=== PATIENT | female | born 1930 | race Caucasian/White ===

== ENCOUNTER 2016-11-03 14:46 | Inpatient (IN) | payer MEDICARE ==
[~2016-11-03] VITALS: Ht 167.6 cm; Wt 78.5 kg
[~2016-11-03 14:46] MED LIST: CALTRATE; CHLORTHALIDONE 12.5 MG; DIGO125T PO; ESOM40CA PO; FISH OIL; LISI-170 PO; LUMIGAN; PROP150T2 PO; RANI150T8 PO; VITAMIN C; VITAMIN D; WARFARIN 2.5 MG
[2016-11-03] MEDS ORDERED: SODIUM CHLORIDE 0.9% 1,000 ML IV ONE (14:56)
[2016-11-03] MEDS ORDERED: SODIUM CHLORIDE 0.9% 1,000ML IVBOLUS ONE (15:00)
[2016-11-03 15:28] LABS: HEMATOCRIT 40.9 % (34.6-47.8); HEMOGLOBIN 13.6 g/dL (11.7-16.4); WHITE BLOOD COUNT 8.9 x10^3/uL (3.4-10)
[2016-11-03 15:38] LABS: BLOOD UREA NITROGEN 20 mg/dL (7-18)
[2016-11-03] MEDS ORDERED: CHOL10002 PO (16:33)
[2016-11-03] MEDS ORDERED: CALC1TAB PO (16:33)
[2016-11-03] MEDS ORDERED: OMEG100023 PO (16:33)
[2016-11-03] MEDS ORDERED: BIMA2.5D EACHEYE (16:33)
[2016-11-03] MEDS ORDERED: ASCO10004 PO (16:34)
[2016-11-03] MEDS ORDERED: APIX2.5T PO (16:34)
[2016-11-03] MEDS ORDERED: DOXY100C2 PO (16:35)
[2016-11-03] MEDS ORDERED: AMOX-367 PO (16:35)
[2016-11-03 16:45] LABS: IS PT STATUS REG ER OR PRE ER? YES
[2016-11-03] MEDS ORDERED: SODIUM CHLORIDE FLUSH 10ML SYR IVF PRN (17:00)
[2016-11-03] MEDS ORDERED: AZITHROMYCIN 500 MG in SODIUM CHLORIDE 0.9% 250 ML IVPB ONE (17:00)
[2016-11-03] MEDS ORDERED: CEFTRIAXONE PMX 1GM/50ML 50 ML IVPB ONE (17:00)
[2016-11-03] MEDS ORDERED: CEFTRIAXONE PMX 1GM/50ML 50 ML ONE (17:21)
[2016-11-03] MEDS: LACTOBACILLUS CHEW TABLET PO SCH ×2 (18:00→22:09)
[2016-11-03] MEDS: CEFTRIAXONE PMX 1GM/50ML 50 ML IV SCH (18:00)
[2016-11-03] MEDS ORDERED: PROMETHAZINE 25 MG/ML, 1ML IM PRN (18:00)
[2016-11-03] MEDS ORDERED: AZITHROMYCIN 500 MG in SODIUM CHLORIDE 0.9% 250 ML IV SCH (18:00)
[2016-11-03] MEDS ORDERED: DOCUSATE 100 MG CAPSULE PO PRN (18:00)
[2016-11-03] MEDS ORDERED: ENOXAPARIN 40 MG/0.4 ML SQ SCH (18:00)
[2016-11-03] MEDS ORDERED: BISACODYL 10 MG SUPP PR PRN (18:00)
[2016-11-03] MEDS ORDERED: POLYETHYLENE GLYCOL 17 GM PACKET PO PRN (18:00)
[2016-11-03] MEDS: SODIUM CHLORIDE 0.9% 1,000 ML IV SCH (19:51)
[2016-11-03 20:25] VITALS: BP 169/99
[2016-11-03 20:50] VITALS: BP 145/67
[2016-11-03] MEDS: PROPAFENONE 150 MG TABLET PO SCH (22:09)
[2016-11-03] MEDS: APIXABAN 2.5 MG TABLET PO SCH (22:09)
[2016-11-03] MEDS: DOXYCYCLINE 100 MG in DEXTROSE 5% 250 ML IV SCH (22:23)
[2016-11-03 22:41] LABS: PATH.CAST-FLAG NOT PRESENT; SPERM-FLAG NOT PRESENT; SRC-FLAG NOT PRESENT; XTAL-FLAG NOT PRESENT; YLC-FLAG NOT PRESENT
[2016-11-03 23:45] VITALS: BP 136/66
[2016-11-03] MEDS: LATANOPROST OPHTH 0.005%, 2.5ML EACHEYE SCH (23:51)
[2016-11-04 03:14] VITALS: BP 128/53
[2016-11-04 05:33] LABS: HEMATOCRIT 38.4 % (34.6-47.8); HEMOGLOBIN 12.6 g/dL (11.7-16.4); WHITE BLOOD COUNT 8.9 x10^3/uL (3.4-10)
[2016-11-04] MEDS: LACTOBACILLUS CHEW TABLET PO SCH ×4 (05:46→22:14)
[2016-11-04] MEDS: SODIUM CHLORIDE 0.9% 1,000 ML IV SCH (05:46)
[2016-11-04 06:11] LABS: ASPARTATE AMINO TRANSFERASE 17 U/L (15-37); BLOOD UREA NITROGEN 12 mg/dL (7-18)
[2016-11-04 07:26] VITALS: BP 150/64
[2016-11-04] MEDS: LISINOPRIL 20 MG TABLET PO SCH (08:24)
[2016-11-04] MEDS: PROPAFENONE 150 MG TABLET PO SCH ×3 (08:24→22:15)
[2016-11-04] MEDS: CHOLECALCIFEROL 1,000 UNIT TABLET PO SCH (08:24)
[2016-11-04] MEDS: ASCORBIC ACID 500 MG TABLET PO SCH (08:24)
[2016-11-04] MEDS: DIGOXIN 0.125 MG TABLET PO SCH (08:24)
[2016-11-04] MEDS: PANTOPROZOLE 40MG TABLET PO SCH (08:24)
[2016-11-04] MEDS: CALCIUM/VITAMIN D3 250-125 TABLET PO SCH (08:24)
[2016-11-04] MEDS: APIXABAN 2.5 MG TABLET PO SCH ×2 (08:24→22:14)
[2016-11-04] MEDS ORDERED: FAMOTIDINE 20 MG TABLET PO SCH (09:00)
[2016-11-04] MEDS ORDERED: SODIUM PHOSPHATE 10 MMOL in SODIUM CHLORIDE 0.9% 500 ML IV ONE (10:00)
[2016-11-04] MEDS ORDERED: POTASSIUM CHLORIDE 20 MEQ TAB.ER.PRT PO ONE (10:00)
[2016-11-04] MEDS: DOXYCYCLINE 100 MG in DEXTROSE 5% 250 ML IV SCH ×2 (10:41→22:15)
[2016-11-04 14:02] VITALS: BP 134/62
[2016-11-04] MEDS: CEFTRIAXONE PMX 1GM/50ML 50 ML IV SCH (17:44)
[2016-11-04 19:30] VITALS: BP 123/67
[2016-11-04] MEDS: LATANOPROST OPHTH 0.005%, 2.5ML EACHEYE SCH (22:15)
[2016-11-04] MEDS: DIPHENHYDRAMINE 25 MG CAPSULE PO PRN ×2 (22:16→23:37)
[2016-11-05] VITALS (7 sets, daily range): BP systolic 113–150; BP diastolic 62–82
[2016-11-05] MEDS ORDERED: DILTIAZEM 5 MG/ML, 5ML IVPush ONE ×2 (04:30→09:00)
[2016-11-05] MEDS: LACTOBACILLUS CHEW TABLET PO SCH ×4 (07:43→21:24)
[2016-11-05] MEDS: PROPAFENONE 150 MG TABLET PO SCH ×3 (10:14→21:24)
[2016-11-05] MEDS: APIXABAN 2.5 MG TABLET PO SCH ×2 (10:14→21:24)
[2016-11-05] MEDS: DOXYCYCLINE 100 MG in DEXTROSE 5% 250 ML IV SCH ×2 (10:14→23:08)
[2016-11-05] MEDS: ASCORBIC ACID 500 MG TABLET PO SCH (10:15)
[2016-11-05] MEDS: DIGOXIN 0.125 MG TABLET PO SCH (10:15)
[2016-11-05] MEDS: CALCIUM/VITAMIN D3 250-125 TABLET PO SCH (10:15)
[2016-11-05] MEDS: PANTOPROZOLE 40MG TABLET PO SCH (10:15)
[2016-11-05] MEDS: LISINOPRIL 20 MG TABLET PO SCH (10:15)
[2016-11-05] MEDS: CHOLECALCIFEROL 1,000 UNIT TABLET PO SCH (10:15)
[2016-11-05 12:20] LABS: BLOOD UREA NITROGEN 11 mg/dL (7-18)
[2016-11-05] MEDS ORDERED: POTASSIUM CHLORIDE 20 MEQ TAB.ER.PRT PO ONE (12:30)
[2016-11-05] MEDS ORDERED: OMNIPAQUE 350 MG/ML, 100ML BOTTLE ONE (13:17)
[2016-11-05] MEDS: DILTIAZEM 30 MG TABLET PO SCH ×3 (13:22→21:25)
[2016-11-05] MEDS ORDERED: SODIUM PHOSPHATE 20 MMOL in SODIUM CHLORIDE 0.9% 500 ML IV ONE (13:30)
[2016-11-05] MEDS: CEFTRIAXONE PMX 1GM/50ML 50 ML IV SCH (17:35)
[2016-11-05] MEDS: LATANOPROST OPHTH 0.005%, 2.5ML EACHEYE SCH (21:24)
[2016-11-06 01:51] VITALS: BP 111/65
[2016-11-06 04:53] LABS: HEMATOCRIT 33.5 % (34.6-47.8); HEMOGLOBIN 10.9 g/dL (11.7-16.4); WHITE BLOOD COUNT 9.9 x10^3/uL (3.4-10)
[2016-11-06 05:13] LABS: BLOOD UREA NITROGEN 16 mg/dL (7-18)
[2016-11-06] MEDS: DILTIAZEM 30 MG TABLET PO SCH ×4 (06:13→20:03)
[2016-11-06] MEDS: LACTOBACILLUS CHEW TABLET PO SCH ×4 (06:13→20:03)
[2016-11-06] MEDS: LISINOPRIL 20 MG TABLET PO SCH (07:49)
[2016-11-06] MEDS: CALCIUM/VITAMIN D3 250-125 TABLET PO SCH (07:49)
[2016-11-06] MEDS: APIXABAN 2.5 MG TABLET PO SCH ×2 (07:49→20:03)
[2016-11-06] MEDS: PANTOPROZOLE 40MG TABLET PO SCH (07:49)
[2016-11-06] MEDS: ASCORBIC ACID 500 MG TABLET PO SCH (07:50)
[2016-11-06] MEDS: PROPAFENONE 150 MG TABLET PO SCH ×3 (07:51→20:07)
[2016-11-06] MEDS: CHOLECALCIFEROL 1,000 UNIT TABLET PO SCH (07:51)
[2016-11-06] MEDS: DIGOXIN 0.125 MG TABLET PO SCH (07:52)
[2016-11-06 07:57] VITALS: BP 126/70
[2016-11-06] MEDS: DOXYCYCLINE 100 MG in DEXTROSE 5% 250 ML IV SCH ×2 (11:16→22:53)
[2016-11-06] MEDS: POTASSIUM CHLORIDE 20 MEQ TAB.ER.PRT PO SCH ×2 (13:17→15:46)
[2016-11-06] MEDS ORDERED: MAGNESIUM SULFATE PMX 4GM/100M 100 ML IV ONE (14:30)
[2016-11-06 15:21] LABS: IS PT STATUS REG ER OR PRE ER? NO
[2016-11-06 15:33] VITALS: BP 126/65
[2016-11-06 19:39] VITALS: BP 124/68
[2016-11-06] MEDS: LATANOPROST OPHTH 0.005%, 2.5ML EACHEYE SCH (20:03)
[2016-11-06] MEDS: CEFTRIAXONE PMX 1GM/50ML 50 ML IV SCH (20:10)
[2016-11-06 21:08] LABS: IS PT STATUS REG ER OR PRE ER? NO
[2016-11-07] MEDS: DIPHENHYDRAMINE 25 MG CAPSULE PO PRN (00:31)
[2016-11-07 01:11] VITALS: BP 142/58
[2016-11-07 03:22] LABS: IS PT STATUS REG ER OR PRE ER? NO
[2016-11-07 03:39] LABS: HEMATOCRIT 34.7 % (34.6-47.8); HEMOGLOBIN 11.5 g/dL (11.7-16.4); WHITE BLOOD COUNT 10.1 x10^3/uL (3.4-10)
[2016-11-07 03:40] LABS: BLOOD UREA NITROGEN 14 mg/dL (7-18)
[2016-11-07 06:30] VITALS: BP 134/63
[2016-11-07] MEDS: LACTOBACILLUS CHEW TABLET PO SCH ×3 (06:31→16:27)
[2016-11-07] MEDS: DILTIAZEM 30 MG TABLET PO SCH ×3 (06:31→16:29)
[2016-11-07 08:38] VITALS: BP 130/70
[2016-11-07] MEDS ORDERED: CHOLESTYRAMINE LIGHT 4GM PACKET PO SCH (09:00)
[2016-11-07] MEDS ORDERED: MAGNESIUM OXIDE 400 MG TABLET PO SCH (09:00)
[2016-11-07] MEDS: ASCORBIC ACID 500 MG TABLET PO SCH (09:33)
[2016-11-07] MEDS: POTASSIUM CHLORIDE 20 MEQ TAB.ER.PRT PO SCH (09:33)
[2016-11-07] MEDS: CHOLECALCIFEROL 1,000 UNIT TABLET PO SCH (09:33)
[2016-11-07] MEDS: PROPAFENONE 150 MG TABLET PO SCH ×2 (09:37→16:28)
[2016-11-07] MEDS: APIXABAN 2.5 MG TABLET PO SCH (09:38)
[2016-11-07] MEDS: LISINOPRIL 20 MG TABLET PO SCH (09:38)
[2016-11-07] MEDS: CALCIUM/VITAMIN D3 250-125 TABLET PO SCH (09:38)
[2016-11-07] MEDS: DIGOXIN 0.125 MG TABLET PO SCH (09:38)
[2016-11-07] MEDS: DOXYCYCLINE 100 MG in DEXTROSE 5% 250 ML IV SCH (10:02)
[2016-11-07 14:21] VITALS: BP 128/64
[2016-11-07] MEDS ORDERED: CHOL239. PO (16:56)
[2016-11-07] MEDS ORDERED: MAGN400T26 PO (16:56)
[2016-11-07] MEDS ORDERED: CEFD300C37 PO (16:56)
[2016-11-07] MEDS ORDERED: DILT60CA PO (16:56)
[2016-11-07] MEDS ORDERED: ACID1TAB7 PO (16:56)
[2016-11-07] MEDS ORDERED: PROM12.553 RC (16:56)
[2016-11-07] MEDS ORDERED: DOXY100C2 PO (17:44)
== END 2016-11-07 20:43 | disposition home or self-care (01) | DRG 193 ==
LOC: ED 17:10 → EDIP 17:35 → 4NOR 18:49 → 5SO 11-05 04:11
PROVIDERS: ADMIT Internal Medicine; ATTEND Internal Medicine
DX: J18.1 Lobar pneumonia, unspecified organism (principal); J96.00 Acute respiratory failure, unspecified whether with hypoxia or hypercapnia; D68.69 Other thrombophilia; I48.0 Paroxysmal atrial fibrillation; E87.1 Hypo-osmolality and hyponatremia; E83.42 Hypomagnesemia; I10 Essential (primary) hypertension; E87.6 Hypokalemia; M54.9 Dorsalgia, unspecified; Z66 Do not resuscitate; K21.9 Gastro-esophageal reflux disease without esophagitis; Z82.49 Family history of ischemic heart disease and other diseases of the circulatory system; Z87.01 Personal history of pneumonia (recurrent); Z90.49 Acquired absence of other specified parts of digestive tract; Z98.49 Cataract extraction status, unspecified eye; Z90.710 Acquired absence of both cervix and uterus; Z79.899 Other long term (current) drug therapy
CPT/HCPCS: 36415; 71010; 71020; 71275; 80048; 80053; 80162; 81001; 82040; 83605; 83735; 84100; 84145; 84443; 84484; 85025; 85379; 87040; 87324; 93005; 93306; 96361; 96365; J0696; J7060; Q9967; J3475; J7030; J7040; Q0163

== ENCOUNTER 2016-11-12 09:58 | Emergency (ER) | payer MEDICARE ==
[~2016-11-12] VITALS: Ht 167.6 cm; Wt 69.0 kg
[~2016-11-12 09:58] MED LIST changes: +ACID1TAB7 PO; +AMOX-367 PO; +APIX2.5T PO; +ASCO10004 PO; +BIMA2.5D EACHEYE; +CALC1TAB PO; +CEFD300C37 PO; +CHOL10002 PO; +CHOL239. PO; +DILT60CA PO; +DOXY100C2 PO; +MAGN400T26 PO; +OMEG100023 PO; +PROM12.553 RC
[2016-11-12] MEDS ORDERED: DILTIAZEM 5 MG/ML, 5ML IV ONE (10:30)
[2016-11-12] MEDS ORDERED: SODIUM CHLORIDE FLUSH 10ML SYR IVF ONE (10:30)
[2016-11-12] MEDS ORDERED: SODIUM CHLORIDE 0.9% 1,000ML IVBOLUS ONE (10:30)
[2016-11-12] MEDS ORDERED: DILTIAZEM 5 MG/ML, 5ML ONE (10:55)
[2016-11-12 11:13] LABS: HEMATOCRIT 44.2 % (34.6-47.8); HEMOGLOBIN 14.5 g/dL (11.7-16.4); WHITE BLOOD COUNT 10.2 x10^3/uL (3.4-10)
[2016-11-12 11:18] LABS: ASPARTATE AMINO TRANSFERASE 37 U/L (15-37); BLOOD UREA NITROGEN 23 mg/dL (7-18)
[2016-11-12 11:23] LABS: IS PT STATUS REG ER OR PRE ER? YES
[2016-11-12 11:36] VITALS: BP 131/62
[2016-11-12] MEDS ORDERED: DILTIAZEM 5 MG/ML, 5ML IVPush ONE (12:00)
[2016-11-12] MEDS ORDERED: METOPROLOL TARTRATE 25 MG TABLET PO ONE (13:00)
[2016-11-12] MEDS ORDERED: METOPROLOL TARTRATE 50 MG TABLET ONE (14:44)
== END 2016-11-12 15:10 | disposition home or self-care (01) ==
LOC: ED 10:19
DX: I48.0 Paroxysmal atrial fibrillation (principal); I10 Essential (primary) hypertension; Z90.49 Acquired absence of other specified parts of digestive tract; Z90.710 Acquired absence of both cervix and uterus; K21.9 Gastro-esophageal reflux disease without esophagitis; Z88.6 Allergy status to analgesic agent
CPT/HCPCS: 36415; 71010; 80053; 80162; 83880; 84484; 85025; 93005; 96361; 96374; 96376; 99285; J7030

== ENCOUNTER 2016-11-14 08:37 | Day surgery (SDC) | payer MEDICARE | END 2016-11-14 09:00 | LOC: CACL 08:37 | PROVIDERS: ATTEND Internal Medicine Cardiovascular Disease | DX: I48.0 Paroxysmal atrial fibrillation (principal); Z53.9 Procedure and treatment not carried out, unspecified reason; E11.9 Type 2 diabetes mellitus without complications; I10 Essential (primary) hypertension; K21.9 Gastro-esophageal reflux disease without esophagitis; Z88.1 Allergy status to other antibiotic agents; Z88.8 Allergy status to other drugs, medicaments and biological substances; Z87.39 Personal history of other diseases of the musculoskeletal system and connective tissue; Z79.01 Long term (current) use of anticoagulants; E78.2 Mixed hyperlipidemia | CPT/HCPCS: 92960 ==

== ENCOUNTER 2017-12-04 10:56 | Emergency (ER) | payer MEDICARE ==
[~2017-12-04] VITALS: Ht 167.6 cm; Wt 70.0 kg
[~2017-12-04 10:56] MED LIST changes: +RANI150T23 PO; -RANI150T8 PO
[2017-12-04] MEDS ORDERED: METO25TA91 PO (11:25)
[2017-12-04 12:11] LABS: BASOPHILS # (AUTO) 0.03 x10^3/uL (0-0.1); BASOPHILS % (AUTO) 0 % (0-1); EOSINOPHILS # (AUTO) 0.14 x10^3/uL (0-0.4); EOSINOPHILS % (AUTO) 2 % (1-7); LYMPHOCYTES # (AUTO) 2.35 x10^3/uL (1-3.4); LYMPHOCYTES % (AUTO) 24 % (22-44); MD NO; MEAN CORPUSCULAR HGB CONC 33.7 g/dL (32.4-35.8); MEAN CORPUSCULAR VOLUME 85.8 fL (80-100); MEAN PLATELET VOLUME 9.9 fL (7.4-10.4); MONOCYTES % (AUTO) 7 % (2-9); NEUTROPHILS # (AUTO) 6.68 x10^3/uL (1.8-6.8); NEUTROPHILS % (AUTO) 67 % (42-75); PLATELET COUNT 262 x10^3/uL (130-400); RED BLOOD COUNT 5.38 x10^6/uL (3.82-5.3); RED CELL DISTRIBUTION WIDTH 14.8 % (9.6-15.2)
[2017-12-04 12:15] LABS: INTERNATIONAL NORMALIZED RATIO 1.03 (0.93-1.1); PROTHROMBIN TIME 10.7 Seconds (9.6-11.5)
[2017-12-04 12:20] LABS: ALBUMIN 3.5 g/dL (3.4-5.0); ANION GAP 7 mmol/L (5-15); CALCIUM 9.3 mg/dL (8.5-10.1); CHLORIDE 106 mmol/L (98-107)
[2017-12-04 12:25] LABS: TROPONIN I < 0.015 ng/mL (0.000-0.045)
[2017-12-04] MEDS ORDERED: ETOMIDATE 20 MG/10 ML ONE (12:49)
[2017-12-04] MEDS ORDERED: ETOMIDATE 20 MG/10 ML IVPush ONE (13:00)
[2017-12-04 14:36] VITALS: BP 102/50
== END 2017-12-04 15:01 | disposition home or self-care (01) ==
LOC: ED 13:09
DX: I48.91 Unspecified atrial fibrillation (principal); Z90.49 Acquired absence of other specified parts of digestive tract; Z90.710 Acquired absence of both cervix and uterus; I10 Essential (primary) hypertension
CPT/HCPCS: 36415; 71045; 80048; 80162; 82040; 83880; 84484; 85025; 85610; 85730; 92960; 93005; 99285

== ENCOUNTER → 2018-01-01 | Outpatient (CLI) | payer MEDICARE ==
[~2018-01-01] MED LIST changes: +METO25TA91 PO
== END | disposition home or self-care (01) ==
LOC: CFH 08:43
PROVIDERS: ATTEND Internal Medicine Cardiovascular Disease
DX: I07.1 Rheumatic tricuspid insufficiency (principal); I34.8 Other nonrheumatic mitral valve disorders; I35.8 Other nonrheumatic aortic valve disorders; I48.0 Paroxysmal atrial fibrillation; I10 Essential (primary) hypertension
CPT/HCPCS: 93306

== ENCOUNTER → 2018-05-20 | Outpatient (CLI) | payer MEDICARE | END | disposition home or self-care (01) | LOC: CFH 12:37 | PROVIDERS: ATTEND Nurse Practitioner | DX: N63.24 Unspecified lump in the left breast, lower inner quadrant (principal) | CPT/HCPCS: 76641; 77066; G0279 ==

== ENCOUNTER 2018-06-21 10:28 | Emergency (ER) | payer MEDICARE ==
[~2018-06-21] VITALS: Ht 167.6 cm; Wt 72.2 kg
--- NOTE | 2018-06-21 10:54 | NUR ---
PT TO ED AFTER FEELING WOOZY TODAY AFTER GETTING OUT OF THE SHOWER. PT STATES SHE TOOK HER HR AND STATED IT WAS HIGH AND SHE WAS IN A FIB. HX OF A FIB. PT ON ELIQUIS AND COMPLIANT; LAST DOSE THIS AM. CONNECTED TO ALL MONITORS. HR 110S-140S, BP 90S. ALL OTHER VSS. PT DENIES SOB AND CP. EDMD TO BEDSIDE FOR ASSESSMENT. AWAITING ORDERS.
--- NOTE | 2018-06-21 11:48 | NUR ---
PT CONVERTED TO NSR. VSS. EDMD AWARE. NEW ORDERS RECEIVED. PT RESTING IN ROOM WTIH AT BEDSIDE. CALL LIGHT ANANYA [place].
[2018-06-21 12:02] LABS: BASOPHILS # (AUTO) 0.05 x10^3/uL (0-0.1); BASOPHILS % (AUTO) 1 % (0-1); EOSINOPHILS # (AUTO) 0.27 x10^3/uL (0-0.4); EOSINOPHILS % (AUTO) 3 % (1-7); LYMPHOCYTES # (AUTO) 2.06 x10^3/uL (1-3.4); LYMPHOCYTES % (AUTO) 25 % (22-44); MD NO; MEAN CORPUSCULAR HEMOGLOBIN 28.1 pg (27.0-34.8); MEAN CORPUSCULAR HGB CONC 32.8 g/dL (32.4-35.8); MEAN CORPUSCULAR VOLUME 85.5 fL (80-100); MEAN PLATELET VOLUME 9.5 fL (7.4-10.4); MONOCYTES # (AUTO) 0.63 x10^3/uL (0.2-0.8); MONOCYTES % (AUTO) 8 % (2-9); NEUTROPHILS # (AUTO) 5.35 x10^3/uL (1.8-6.8); NEUTROPHILS % (AUTO) 64 % (42-75); PLATELET COUNT 265 x10^3/uL (130-400); RED BLOOD COUNT 5.29 x10^6/uL (3.82-5.3); RED CELL DISTRIBUTION WIDTH 13.4 % (9.6-15.2)
[2018-06-21 12:13] LABS: INTERNATIONAL NORMALIZED RATIO 1.02 (0.93-1.1); PROTHROMBIN TIME 10.7 Seconds (9.6-11.5)
[2018-06-21 12:21] LABS: ALBUMIN 3.4 g/dL (3.4-5.0); ANION GAP 8 mmol/L (5-15); CALCIUM 9.5 mg/dL (8.5-10.1); CHLORIDE 107 mmol/L (98-107); CREATININE 1.19 mg/dL (0.55-1.02)
--- NOTE | 2018-06-21 12:28 | NUR ---
pt resting in room with at bedside. vss. no needs at this time. repeat ekg complete. awawiting lab results.
[2018-06-21 12:36] VITALS: BP 113/80
--- NOTE | 2018-06-21 12:37 | NUR ---
ALL RESULTS BACK AT THIS TIME. CHART UP FOR RECHECK.
== END 2018-06-21 13:31 | disposition home or self-care (01) ==
LOC: ED 11:19
DX: I48.0 Paroxysmal atrial fibrillation (principal); I10 Essential (primary) hypertension; Z90.49 Acquired absence of other specified parts of digestive tract; Z90.710 Acquired absence of both cervix and uterus
CPT/HCPCS: 36415; 71045; 80048; 80162; 82040; 85025; 85610; 85730; 93005; 99284

== ENCOUNTER → 2018-09-15 | Outpatient (CLI) | payer MEDICARE ==
[~2018-09-15] MED LIST changes: +REGADENOSON 0.4 MG/5 ML SYRINGE ONE
== END | disposition home or self-care (01) ==
LOC: CFH 08:11
PROVIDERS: ATTEND Internal Medicine Cardiovascular Disease
DX: I48.0 Paroxysmal atrial fibrillation (principal)
CPT/HCPCS: 78452; 93017; A9502; J2785

== ENCOUNTER → 2019-03-25 | Outpatient (CLI) | payer MEDICARE ==
[~2019-03-25] MED LIST changes: +RANI-467 PO; -RANI150T23 PO; -REGADENOSON 0.4 MG/5 ML SYRINGE ONE
== END | disposition home or self-care (01) ==
LOC: CVU 13:51
PROVIDERS: ATTEND Internal Medicine Cardiovascular Disease
DX: I36.1 Nonrheumatic tricuspid (valve) insufficiency (principal)
CPT/HCPCS: 93306

== ENCOUNTER 2019-06-09 11:55 | Emergency (ER) | payer MEDICARE ==
[~2019-06-09] VITALS: Ht 167.6 cm; Wt 73.0 kg
[~2019-06-09 11:55] MED LIST changes: -DIGO125T PO; +DIGO125T85 PO
[2019-06-09 12:54] LABS: BASOPHILS # (AUTO) 0.05 x10^3/uL (0-0.1); BASOPHILS % (AUTO) 1 % (0-1); EOSINOPHILS # (AUTO) 0.12 x10^3/uL (0-0.4); EOSINOPHILS % (AUTO) 2 % (1-7); LYMPHOCYTES % (AUTO) 30 % (22-44); MD NO; MEAN CORPUSCULAR HEMOGLOBIN 28.8 pg (27.0-34.8); MEAN CORPUSCULAR HGB CONC 32.9 g/dL (32.4-35.8); MEAN CORPUSCULAR VOLUME 87.5 fL (80-100); MEAN PLATELET VOLUME 9.4 fL (7.4-10.4); MONOCYTES # (AUTO) 0.52 x10^3/uL (0.2-0.8); MONOCYTES % (AUTO) 7 % (2-9); NEUTROPHILS # (AUTO) 4.32 x10^3/uL (1.8-6.8); NEUTROPHILS % (AUTO) 61 % (42-75); PLATELET COUNT 248 x10^3/uL (130-400); RED BLOOD COUNT 5.06 x10^6/uL (3.82-5.3); RED CELL DISTRIBUTION WIDTH 14.2 % (9.6-15.2)
[2019-06-09] MEDS ORDERED: MECO10005 PO (13:01)
[2019-06-09] MEDS ORDERED: ASCO10004 PO (13:01)
[2019-06-09] MEDS ORDERED: CALC1TAB PO (13:01)
[2019-06-09] MEDS ORDERED: BIMA2.5D EACHEYE (13:01)
[2019-06-09] MEDS ORDERED: CHOL10003 PO (13:01)
[2019-06-09] MEDS ORDERED: RANI300C PO (13:02)
[2019-06-09 13:08] LABS: ANION GAP 6 mmol/L (5-15); CALCIUM 9.6 mg/dL (8.5-10.1); CHLORIDE 103 mmol/L (98-107); CREATININE 1.14 mg/dL (0.55-1.02)
--- NOTE | 2019-06-09 13:09 | NUR ---
Late Entry: Pt ambulated to room, resting on gurney with at bedside, changed into gown, NAD, denies additional needs at this time, given warm blankets for comfort. BESSIE
[2019-06-09] MEDS ORDERED: PHENAZOPYRIDINE 200 MG TABLET ONE (13:20)
--- NOTE | 2019-06-09 13:25 | NUR ---
Pt ambulated to bathroom with smooth and steady gait. Urine sample collected and sent to lab. [facility].
[2019-06-09 13:32] LABS: CULTURE INDICATED? YES; MICROSCOPIC INDICATED
[2019-06-09 13:54] VITALS: BP 129/73
[2019-06-09] MEDS ORDERED: PHENAZOPYRIDINE 200 MG TABLET PO ONE (14:00)
== END 2019-06-09 13:56 | disposition home or self-care (01) ==
LOC: ED 13:50
DX: N30.00 Acute cystitis without hematuria (principal); I48.91 Unspecified atrial fibrillation; K21.9 Gastro-esophageal reflux disease without esophagitis; I10 Essential (primary) hypertension; Z90.49 Acquired absence of other specified parts of digestive tract; Z90.710 Acquired absence of both cervix and uterus
CPT/HCPCS: 36415; 80048; 81001; 85025; 87086; 99283

== ENCOUNTER 2019-07-03 09:45 | Inpatient (IN) | payer MEDICARE ==
[~2019-07-03] VITALS: Ht 167.6 cm; Wt 68.8 kg
[~2019-07-03 09:45] MED LIST changes: +CHOL10003 PO; +MECO10005 PO; +RANI300C PO
[2019-07-03] MEDS ORDERED: METOCLOPRAMIDE 10MG TABLET ONE (10:20)
[2019-07-03] MEDS ORDERED: METOCLOPRAMIDE 10MG TABLET PO SCH (10:30)
[2019-07-03 10:55] LABS: BASOPHILS # (AUTO) 0.01 x10^3/uL (0-0.1); BASOPHILS % (AUTO) 0 % (0-1); EOSINOPHILS % (AUTO) 0 % (1-7); LYMPHOCYTES # (AUTO) 0.98 x10^3/uL (1-3.4); LYMPHOCYTES % (AUTO) 21 % (22-44); MD NO; MEAN CORPUSCULAR HEMOGLOBIN 28.7 pg (27.0-34.8); MEAN CORPUSCULAR HGB CONC 32.7 g/dL (32.4-35.8); MEAN CORPUSCULAR VOLUME 87.6 fL (80-100); MEAN PLATELET VOLUME 8.7 fL (7.4-10.4); MONOCYTES # (AUTO) 0.58 x10^3/uL (0.2-0.8); MONOCYTES % (AUTO) 12 % (2-9); NEUTROPHILS % (AUTO) 66 % (42-75); PLATELET COUNT 198 x10^3/uL (130-400); RED BLOOD COUNT 4.97 x10^6/uL (3.82-5.3); RED CELL DISTRIBUTION WIDTH 12.9 % (9.6-15.2)
[2019-07-03 11:06] LABS: ALANINE AMINOTRANSFERASE 21 U/L (12-78); ALBUMIN 3.1 g/dL (3.4-5.0); ANION GAP 8 mmol/L (5-15); CALCIUM 8.2 mg/dL (8.5-10.1); CHLORIDE 92 mmol/L (98-107); CREATININE 0.95 mg/dL (0.55-1.02)
[2019-07-03 11:08] LABS: ALKALINE PHOSPHATASE 56 U/L (45-117); BILIRUBIN,TOTAL 0.5 mg/dL (0.2-1.0); TOTAL PROTEIN 6.7 g/dL (6.4-8.2)
[2019-07-03 11:11] LABS: MICROSCOPIC AUTO
[2019-07-03 11:27] LABS: CULTURE INDICATED? NO
[2019-07-03] MEDS ORDERED: NS + 40MEQ KCL 1,000 ML IV SCH (11:30)
[2019-07-03] MEDS ORDERED: NS + 40MEQ KCL 1,000 ML IV ONE (12:04)
[2019-07-03] MEDS ORDERED: OMNIPAQUE 350 MG/ML, 100ML BOTTLE ONE (12:11)
[2019-07-03] MEDS ORDERED: METOCLOPRAMIDE 5 MG/ML, 2ML ONE (12:46)
[2019-07-03] MEDS ORDERED: FAMO20TA7 PO (12:55)
[2019-07-03] MEDS ORDERED: SODIUM CHLORIDE FLUSH 10ML SYR IVF PRN (13:00)
[2019-07-03] MEDS ORDERED: METOCLOPRAMIDE 5 MG/ML, 2ML IVPush ONE (13:00)
[2019-07-03] MEDS ORDERED: POTASSIUM CHLORIDE 20 MEQ in SODIUM CHLORIDE 0.9% 1,000 ML IV ONE (13:00)
[2019-07-03] MEDS ORDERED: LIDODERM 5% PATCH TD PRN (13:30)
[2019-07-03] MEDS ORDERED: IBUPROFEN 600 MG TABLET PO PRN (13:30)
[2019-07-03] MEDS ORDERED: hydrALAzine 20 MG/ML, 1ML IVPush PRN (13:30)
[2019-07-03 13:53] LABS: FREE T4 (FREE THYROXINE) 1.5 ng/dL (0.76-1.46)
[2019-07-03 14:32] LABS: HCT (SEDRATE) 43.6 % (34.6-47.8)
[2019-07-03 14:49] VITALS: BP 146/67
[2019-07-03 14:53] LABS: CHLORIDE,URINE RANDOM 84 mmol/L; POTASSIUM,URINE RANDOM 52 mmol/L; SODIUM,URINE RANDOM 41 mmol/L
[2019-07-03] MEDS: ONDANSETRON 2MG/ML, 2ML IVPush PRN (15:37)
[2019-07-03] MEDS: PROPAFENONE 150 MG TABLET PO SCH ×2 (16:33→22:04)
[2019-07-03] MEDS: NS + 20MEQ KCL 1,000 ML IV SCH (16:33)
[2019-07-03 17:10] LABS: OSMOLALITY,URINE 465 mOsm/kg (500-850)
[2019-07-03 20:05] VITALS: BP 145/55
[2019-07-03] MEDS: FAMOTIDINE 20 MG TABLET PO SCH (22:04)
[2019-07-03] MEDS: APIXABAN 5 MG TABLET PO SCH (22:04)
[2019-07-03] MEDS: LATANOPROST OPHTH 0.005%, 2.5ML EACHEYE SCH (22:04)
[2019-07-03] MEDS: ASCORBIC ACID 500 MG TABLET PO SCH (22:05)
[2019-07-03] MEDS: CALCIUM/VITAMIN D3 250-125 TABLET PO SCH (22:07)
[2019-07-04] MEDS: ZOLPIDEM 5MG TABLET PO PRN ×2 (02:01→21:38)
[2019-07-04] MEDS: NS + 20MEQ KCL 1,000 ML IV SCH (02:01)
[2019-07-04] MEDS: LIDODERM REMOVE PATCH NOTE XX SCH ×2 (03:00→21:45)
[2019-07-04 04:57] LABS: BASOPHILS # (AUTO) 0.01 x10^3/uL (0-0.1); BASOPHILS % (AUTO) 0 % (0-1); EOSINOPHILS # (AUTO) 0.01 x10^3/uL (0-0.4); EOSINOPHILS % (AUTO) 0 % (1-7); LYMPHOCYTES # (AUTO) 1.27 x10^3/uL (1-3.4); LYMPHOCYTES % (AUTO) 26 % (22-44); MD NO; MEAN CORPUSCULAR HEMOGLOBIN 28.6 pg (27.0-34.8); MEAN CORPUSCULAR HGB CONC 33.3 g/dL (32.4-35.8); MEAN CORPUSCULAR VOLUME 85.9 fL (80-100); MONOCYTES # (AUTO) 0.72 x10^3/uL (0.2-0.8); MONOCYTES % (AUTO) 15 % (2-9); NEUTROPHILS # (AUTO) 2.89 x10^3/uL (1.8-6.8); NEUTROPHILS % (AUTO) 59 % (42-75); PLATELET COUNT 181 x10^3/uL (130-400); RED BLOOD COUNT 4.57 x10^6/uL (3.82-5.3); RED CELL DISTRIBUTION WIDTH 13.4 % (9.6-15.2)
[2019-07-04 05:07] LABS: ALANINE AMINOTRANSFERASE 18 U/L (12-78); ALBUMIN 2.8 g/dL (3.4-5.0); ANION GAP 7 mmol/L (5-15); CHLORIDE 103 mmol/L (98-107); CREATININE 0.84 mg/dL (0.55-1.02)
[2019-07-04 05:09] LABS: ALKALINE PHOSPHATASE 49 U/L (45-117); BILIRUBIN,TOTAL 0.2 mg/dL (0.2-1.0); TOTAL PROTEIN 5.9 g/dL (6.4-8.2)
[2019-07-04] MEDS ORDERED: POTASSIUM CHLORIDE 20 MEQ TAB.ER.PRT PO ONE (07:00)
[2019-07-04] MEDS: LISINOPRIL 20 MG TABLET PO SCH (08:22)
[2019-07-04] MEDS: CALCIUM/VITAMIN D3 250-125 TABLET PO SCH ×2 (08:22→21:50)
[2019-07-04] MEDS: ASCORBIC ACID 500 MG TABLET PO SCH ×2 (08:22→21:38)
[2019-07-04] MEDS: PROPAFENONE 150 MG TABLET PO SCH ×3 (08:23→21:38)
[2019-07-04] MEDS: APIXABAN 5 MG TABLET PO SCH ×2 (08:30→21:38)
[2019-07-04] MEDS ORDERED: METOPROLOL SUCCINATE 25 MG TAB.ER.24H PO SCH (09:00)
[2019-07-04] MEDS ORDERED: DIGOXIN 0.125 MG TABLET PO SCH (09:00)
[2019-07-04 15:43] LABS: C-REACTIVE PROTEIN, QUANT 1.9 mg/dL (0.02-0.49)
[2019-07-04] MEDS: HYDROXYCHLOROQUINE 200 MG TABLET PO SCH ×2 (15:52→21:38)
[2019-07-04] MEDS: AZITHROMYCIN 500 MG TABLET PO SCH (17:13)
[2019-07-04 17:14] VITALS: BP 113/68
[2019-07-04 20:05] VITALS: BP 124/62
[2019-07-04] MEDS: LATANOPROST OPHTH 0.005%, 2.5ML EACHEYE SCH (21:38)
[2019-07-04] MEDS: FAMOTIDINE 20 MG TABLET PO SCH (21:45)
[2019-07-05 02:05] VITALS: BP 117/58
[2019-07-05 06:13] LABS: ANION GAP 7 mmol/L (5-15); CALCIUM 8.8 mg/dL (8.5-10.1); CHLORIDE 103 mmol/L (98-107); CREATININE 0.74 mg/dL (0.55-1.02)
[2019-07-05] MEDS ORDERED: POTASSIUM CHLORIDE 20 MEQ TAB.ER.PRT PO ONE (07:00)
[2019-07-05] MEDS ORDERED: MAGNESIUM SULFATE PMX 2GM/50ML 50 ML IV ONE (07:00)
[2019-07-05] MEDS: AZITHROMYCIN 500 MG TABLET PO SCH (08:41)
[2019-07-05] MEDS: DIGOXIN 0.125 MG TABLET PO SCH (08:41)
[2019-07-05] MEDS: HYDROXYCHLOROQUINE 200 MG TABLET PO SCH ×3 (08:41→21:21)
[2019-07-05] MEDS: ASCORBIC ACID 500 MG TABLET PO SCH ×2 (08:41→21:21)
[2019-07-05] MEDS: PROPAFENONE 150 MG TABLET PO SCH ×3 (08:41→21:21)
[2019-07-05] MEDS: APIXABAN 5 MG TABLET PO SCH ×2 (08:41→21:21)
[2019-07-05] MEDS: CALCIUM/VITAMIN D3 250-125 TABLET PO SCH ×2 (08:42→21:00)
[2019-07-05] MEDS: METOPROLOL SUCCINATE 25 MG TAB.ER.24H PO SCH (08:42)
[2019-07-05] MEDS: LISINOPRIL 20 MG TABLET PO SCH (08:42)
[2019-07-05 09:06] VITALS: BP 105/79
[2019-07-05 12:36] VITALS: BP 115/76
[2019-07-05 19:45] VITALS: BP 118/53
[2019-07-05] MEDS: LATANOPROST OPHTH 0.005%, 2.5ML EACHEYE SCH (21:21)
[2019-07-05] MEDS: FAMOTIDINE 20 MG TABLET PO SCH (21:21)
[2019-07-05] MEDS: ZOLPIDEM 5MG TABLET PO PRN (21:44)
[2019-07-06] MEDS: LIDODERM REMOVE PATCH NOTE XX SCH (03:00)
[2019-07-06 04:00] VITALS: BP 110/50
[2019-07-06 08:27] VITALS: BP 135/57
[2019-07-06] MEDS: DIGOXIN 0.125 MG TABLET PO SCH (08:50)
[2019-07-06] MEDS: AZITHROMYCIN 500 MG TABLET PO SCH (08:50)
[2019-07-06] MEDS: METOPROLOL SUCCINATE 25 MG TAB.ER.24H PO SCH (08:50)
[2019-07-06] MEDS: ASCORBIC ACID 500 MG TABLET PO SCH ×2 (08:50→22:08)
[2019-07-06] MEDS: HYDROXYCHLOROQUINE 200 MG TABLET PO SCH ×3 (08:50→22:09)
[2019-07-06] MEDS: LISINOPRIL 20 MG TABLET PO SCH (08:50)
[2019-07-06] MEDS: PROPAFENONE 150 MG TABLET PO SCH ×3 (08:50→22:08)
[2019-07-06] MEDS: APIXABAN 5 MG TABLET PO SCH ×2 (08:50→22:09)
[2019-07-06] MEDS: CALCIUM/VITAMIN D3 250-125 TABLET PO SCH ×2 (08:50→22:08)
[2019-07-06 12:35] VITALS: BP 121/53
[2019-07-06 20:43] VITALS: BP 109/61
[2019-07-06] MEDS: FAMOTIDINE 20 MG TABLET PO SCH (22:08)
[2019-07-06] MEDS: LATANOPROST OPHTH 0.005%, 2.5ML EACHEYE SCH (22:09)
[2019-07-07 01:40] VITALS: BP 124/61
[2019-07-07] MEDS: LIDODERM REMOVE PATCH NOTE XX SCH (02:34)
[2019-07-07 08:00] VITALS: BP 144/59
[2019-07-07] MEDS: ASCORBIC ACID 500 MG TABLET PO SCH ×2 (08:12→21:06)
[2019-07-07] MEDS: PROPAFENONE 150 MG TABLET PO SCH ×3 (08:12→21:06)
[2019-07-07] MEDS: HYDROXYCHLOROQUINE 200 MG TABLET PO SCH ×3 (08:12→21:06)
[2019-07-07] MEDS: DIGOXIN 0.125 MG TABLET PO SCH (08:12)
[2019-07-07] MEDS: CALCIUM/VITAMIN D3 250-125 TABLET PO SCH ×2 (08:13→21:06)
[2019-07-07] MEDS: AZITHROMYCIN 500 MG TABLET PO SCH (08:13)
[2019-07-07] MEDS: LISINOPRIL 20 MG TABLET PO SCH (08:13)
[2019-07-07] MEDS: APIXABAN 5 MG TABLET PO SCH ×2 (08:13→21:06)
[2019-07-07] MEDS: METOPROLOL SUCCINATE 25 MG TAB.ER.24H PO SCH (08:18)
[2019-07-07 12:23] VITALS: BP 99/61
[2019-07-07] MEDS: LATANOPROST OPHTH 0.005%, 2.5ML EACHEYE SCH (21:00)
[2019-07-07] MEDS: FAMOTIDINE 20 MG TABLET PO SCH (21:06)
[2019-07-07] MEDS: ONDANSETRON 2MG/ML, 2ML IVPush PRN (21:20)
[2019-07-07 21:37] VITALS: BP 129/62
[2019-07-08 02:37] VITALS: BP 132/63
[2019-07-08] MEDS: LIDODERM REMOVE PATCH NOTE XX SCH (03:00)
[2019-07-08 05:11] LABS: CREATININE 0.87 mg/dL (0.55-1.02)
[2019-07-08 08:36] VITALS: BP 128/64
[2019-07-08] MEDS: PROPAFENONE 150 MG TABLET PO SCH (08:43)
[2019-07-08] MEDS: ASCORBIC ACID 500 MG TABLET PO SCH (08:43)
[2019-07-08] MEDS: AZITHROMYCIN 500 MG TABLET PO SCH (08:43)
[2019-07-08] MEDS: DIGOXIN 0.125 MG TABLET PO SCH (08:43)
[2019-07-08] MEDS: CALCIUM/VITAMIN D3 250-125 TABLET PO SCH (08:44)
[2019-07-08] MEDS: APIXABAN 5 MG TABLET PO SCH (08:44)
[2019-07-08] MEDS: METOPROLOL SUCCINATE 25 MG TAB.ER.24H PO SCH (08:44)
[2019-07-08] MEDS: LISINOPRIL 20 MG TABLET PO SCH (08:44)
[2019-07-08] MEDS: HYDROXYCHLOROQUINE 200 MG TABLET PO SCH (08:45)
[2019-07-08] MEDS ORDERED: ZINC SULFATE 220 MG CAPSULE PO SCH (09:00)
[2019-07-08] MEDS ORDERED: ZINC220C7 PO (09:25)
[2019-07-08 12:28] VITALS: BP 162/69
== END 2019-07-08 12:50 | disposition home or self-care (01) | DRG 177 ==
LOC: ED 10:21 → SUATTDRO 12:44 → EDIP 13:00 → 4EST 14:24 → ICU 20:00 → 3WST 07-04 10:49 → 3E 07-06 10:20
PROVIDERS: ADMIT Hospitalist; ATTEND Hospitalist
DX: U07.1 COVID-19 (principal); J12.89 Other viral pneumonia; I50.30 Unspecified diastolic (congestive) heart failure; E87.1 Hypo-osmolality and hyponatremia; I48.0 Paroxysmal atrial fibrillation; E86.1 Hypovolemia; E87.6 Hypokalemia; H40.9 Unspecified glaucoma; I11.0 Hypertensive heart disease with heart failure; K21.9 Gastro-esophageal reflux disease without esophagitis; Z66 Do not resuscitate; Z82.49 Family history of ischemic heart disease and other diseases of the circulatory system; Z90.710 Acquired absence of both cervix and uterus; Z87.440 Personal history of urinary (tract) infections
CPT/HCPCS: 36415; 71045; 74177; 80048; 80053; 80162; 81001; 82436; 82565; 83615; 83690; 83735; 83930; 83935; 84100; 84133; 84145; 84300; 84439; 84443; 85025; 85379; 85651; 86140; 87081; 87086; 93005; 96374; G0378; J2405; J3480; Q9967; J2765; J3475

== ENCOUNTER 2019-09-29 14:21 | Emergency (ER) | payer MEDICARE ==
[~2019-09-29] VITALS: Ht 167.6 cm; Wt 71.8 kg
[~2019-09-29 14:21] MED LIST changes: +FAMO20TA7 PO; +ZINC220C7 PO
[2019-09-29 14:42] VITALS: BP 131/67
--- NOTE | 2019-09-29 15:04 | NUR ---
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
[2019-09-29] MEDS ORDERED: PROPOFOL 10 MG/ML, 20ML IVPush ONE (15:30)
[2019-09-29 15:38] LABS: ALBUMIN 3.5 g/dL (3.4-5.0); ANION GAP 5 mmol/L (5-15); CALCIUM 9.2 mg/dL (8.5-10.1); CHLORIDE 104 mmol/L (98-107); CREATININE 1.11 mg/dL (0.55-1.02)
[2019-09-29] MEDS ORDERED: PROPOFOL 10 MG/ML, 20ML ONE (16:35)
--- NOTE | 2019-09-29 16:58 | NUR ---
consent for procedural sedation obtained. pt has pads in place with crash cart at bedside with md preparing to cardiovert. see paperwork for same
--- NOTE | 2019-09-29 18:27 | NUR ---
PT TO DISCHARGE WINDOW VIA W/C WITH
== END 2019-09-29 18:33 | disposition home or self-care (01) ==
LOC: ED 17:30
DX: I48.0 Paroxysmal atrial fibrillation (principal); R42 Dizziness and giddiness; I10 Essential (primary) hypertension; R94.31 Abnormal electrocardiogram [ECG] [EKG]
CPT/HCPCS: 36415; 71046; 80048; 82040; 83735; 83880; 92960; 93005; 99285

== ENCOUNTER → 2020-02-21 | Outpatient (CLI) | payer MEDICARE ==
[~2020-02-21] MED LIST changes: +ASCO100018 PO; -ASCO10004 PO; +OMNIPAQUE 350 MG/ML, 100ML BOTTLE ONE
== END | disposition home or self-care (01) ==
LOC: CFH 14:08
PROVIDERS: ATTEND Internal Medicine Cardiovascular Disease
DX: J98.4 Other disorders of lung (principal); I34.8 Other nonrheumatic mitral valve disorders
CPT/HCPCS: 71275; Q9967

== ENCOUNTER 2020-09-19 10:03 | Outpatient (CLI) | payer MEDICARE ==
[~2020-09-19 10:03] MED LIST changes: -OMNIPAQUE 350 MG/ML, 100ML BOTTLE ONE
== END 2020-09-19 23:59 | disposition home or self-care (01) ==
LOC: CFH 10:03
PROVIDERS: ATTEND Internal Medicine Cardiovascular Disease
DX: I08.3 Combined rheumatic disorders of mitral, aortic and tricuspid valves (principal); I48.0 Paroxysmal atrial fibrillation; I10 Essential (primary) hypertension; E78.5 Hyperlipidemia, unspecified; Z79.01 Long term (current) use of anticoagulants
CPT/HCPCS: 93306

== ENCOUNTER 2020-09-27 06:08 | Day surgery (SDC) | payer MEDICARE ==
[~2020-09-27] VITALS: Ht 167.6 cm; Wt 72.7 kg
[2020-09-27] MEDS ORDERED: MAGNESIUM PO (06:35)
[2020-09-27] MEDS ORDERED: Cranberry PO (06:35)
[2020-09-27] MEDS ORDERED: CHLO25TA PO (06:35)
[2020-09-27] MEDS ORDERED: ZINC220T2 PO (06:35)
[2020-09-27] MEDS ORDERED: OXYB5TAB10 PO (06:35)
[2020-09-27] MEDS ORDERED: LORA10TA75 PO (06:35)
[2020-09-27 06:39] VITALS: BP 135/72
[2020-09-27 07:05] LABS: BASOPHILS % (AUTO) 1 % (0-1); EOSINOPHILS % (AUTO) 2 % (1-7); LYMPHOCYTES % (AUTO) 25 % (22-44); MEAN CORPUSCULAR HEMOGLOBIN 28.1 pg (27.0-34.8); MEAN CORPUSCULAR HGB CONC 33.2 g/dL (32.4-35.8); MEAN PLATELET VOLUME 9.1 fL (7.4-10.4); MONOCYTES % (AUTO) 8 % (2-9); NEUTROPHILS % (AUTO) 64 % (42-75); PLATELET COUNT 273 x10^3/uL (130-400); RED BLOOD COUNT 5.08 x10^6/uL (3.82-5.3)
[2020-09-27] MEDS ORDERED: PROPOFOL 10 MG/ML, 20ML ONE (07:05)
[2020-09-27 07:11] LABS: ANION GAP 8 mmol/L (5-15); CALCIUM 9.2 mg/dL (8.5-10.1); CHLORIDE 105 mmol/L (98-107); CREATININE 0.97 mg/dL (0.55-1.02)
== END 2020-09-27 09:03 | disposition home or self-care (01) ==
LOC: CACL 06:08
PROVIDERS: ATTEND Internal Medicine Cardiovascular Disease
DX: I48.0 Paroxysmal atrial fibrillation (principal); I36.1 Nonrheumatic tricuspid (valve) insufficiency; I10 Essential (primary) hypertension; E78.2 Mixed hyperlipidemia; Z79.01 Long term (current) use of anticoagulants; Z79.899 Other long term (current) drug therapy; Z88.8 Allergy status to other drugs, medicaments and biological substances
CPT/HCPCS: 36415; 80048; 85025; 92960; J2704

== ENCOUNTER 2020-10-10 06:15 | Day surgery (SDC) | payer MEDICARE ==
[~2020-10-10] VITALS: Ht 167.6 cm; Wt 69.0 kg
[~2020-10-10 06:15] MED LIST changes: +CHLO25TA PO; +Cranberry PO; +LORA10TA75 PO; +MAGNESIUM PO; +OXYB5TAB10 PO; +ZINC220T2 PO
[2020-10-10 07:21] LABS: BASOPHILS % (AUTO) 1 % (0-1); EOSINOPHILS % (AUTO) 2 % (1-7); LYMPHOCYTES % (AUTO) 25 % (22-44); MEAN CORPUSCULAR HEMOGLOBIN 27.9 pg (27.0-34.8); MEAN CORPUSCULAR HGB CONC 33.3 g/dL (32.4-35.8); MEAN PLATELET VOLUME 9.1 fL (7.4-10.4); MONOCYTES % (AUTO) 8 % (2-9); NEUTROPHILS % (AUTO) 64 % (42-75); PLATELET COUNT 255 x10^3/uL (130-400); RED BLOOD COUNT 5.17 x10^6/uL (3.82-5.3); RED CELL DISTRIBUTION WIDTH 14.1 % (9.6-15.2)
[2020-10-10 07:23] LABS: ANION GAP 7 mmol/L (5-15); CHLORIDE 102 mmol/L (98-107); CREATININE 1.01 mg/dL (0.55-1.02)
== END 2020-10-10 07:25 | disposition home or self-care (01) ==
LOC: CACL 06:15
PROVIDERS: ATTEND Internal Medicine Cardiovascular Disease
DX: I48.0 Paroxysmal atrial fibrillation (principal); Z53.8 Procedure and treatment not carried out for other reasons; I07.1 Rheumatic tricuspid insufficiency; I10 Essential (primary) hypertension; E78.2 Mixed hyperlipidemia; Z79.01 Long term (current) use of anticoagulants; Z79.899 Other long term (current) drug therapy; Z88.5 Allergy status to narcotic agent
CPT/HCPCS: 36415; 80048; 80162; 85025

== ENCOUNTER → 2020-10-18 | Day surgery (SDC) | payer MEDICARE ==
[~2020-10-18] VITALS: Ht 167.6 cm; Wt 70.9 kg
[2020-10-18 07:27] VITALS: BP 134/82
[2020-10-18 07:51] LABS: BASOPHILS % (AUTO) 1 % (0-1); EOSINOPHILS % (AUTO) 3 % (1-7); LYMPHOCYTES % (AUTO) 26 % (22-44); MEAN CORPUSCULAR HGB CONC 33.5 g/dL (32.4-35.8); MEAN PLATELET VOLUME 8.6 fL (7.4-10.4); MONOCYTES % (AUTO) 7 % (2-9); NEUTROPHILS % (AUTO) 63 % (42-75); PLATELET COUNT 257 x10^3/uL (130-400); RED CELL DISTRIBUTION WIDTH 13.8 % (9.6-15.2)
[2020-10-18 08:03] LABS: ANION GAP 5 mmol/L (5-15); CALCIUM 9.5 mg/dL (8.5-10.1); CHLORIDE 98 mmol/L (98-107)
== END | disposition home or self-care (01) ==
LOC: CACL 06:32
PROVIDERS: ATTEND Internal Medicine Cardiovascular Disease
DX: I48.0 Paroxysmal atrial fibrillation (principal); I10 Essential (primary) hypertension; E78.2 Mixed hyperlipidemia; Z79.01 Long term (current) use of anticoagulants; Z79.899 Other long term (current) drug therapy; Z88.8 Allergy status to other drugs, medicaments and biological substances
CPT/HCPCS: 36415; 80048; 80162; 85025; 92960

== ENCOUNTER 2020-10-29 09:26 | Emergency (ER) | payer MEDICARE ==
[~2020-10-29] VITALS: Ht 165.1 cm; Wt 69.7 kg
--- NOTE | 2020-10-29 10:07 | NUR ---
DR PARHAM AT BEDSIDE, PT ASSESSMENT, POC DISCUSSED AND QUESTIONS ANSWERED. ALL MONITORS PLACED, VSS +A-FIB [id number]. CALL LIGHT W/I REACH
--- NOTE | 2020-10-29 10:09 | NUR ---
PLAN FOR CARDIOVERSION DISCUSSED.
[2020-10-29] MEDS ORDERED: PROPOFOL 10 MG/ML, 20ML ONE (10:11)
[2020-10-29] MEDS ORDERED: PROPOFOL 10 MG/ML, 20ML IVPush ONE (10:30)
[2020-10-29 11:44] VITALS: BP 123/54
--- NOTE | 2020-10-29 11:57 | NUR ---
Patient/Caregiver given discharge instructions and they have confirmed that they understand the instructions. Patient ambulatory with steady gait. NAD, all questions answered appropriately, denies additional needs at this time. No personal belongings left in room after discharge.
== END 2020-10-29 11:57 | disposition home or self-care (01) ==
LOC: ED 11:05
DX: I48.0 Paroxysmal atrial fibrillation (principal); I10 Essential (primary) hypertension; K21.9 Gastro-esophageal reflux disease without esophagitis; Z90.49 Acquired absence of other specified parts of digestive tract
CPT/HCPCS: 92960; 93005; 99152; 99291; J2704

== ENCOUNTER 2020-11-02 10:12 | Day surgery (SDC) | payer MEDICARE ==
[~2020-11-02] VITALS: Ht 165.1 cm; Wt 70.0 kg
[2020-11-02] MEDS ORDERED: APIX5TAB PO (10:40)
[2020-11-02] MEDS ORDERED: METO25TA2 PO (10:41)
[2020-11-02] MEDS ORDERED: AMIO200T42 PO (10:43)
[2020-11-02 10:44] VITALS: BP 112/81
[2020-11-02 11:37] LABS: ANION GAP 6 mmol/L (5-15); CALCIUM 8.9 mg/dL (8.5-10.1); CHLORIDE 98 mmol/L (98-107); CREATININE 0.86 mg/dL (0.55-1.02)
[2020-11-02] MEDS ORDERED: PROPOFOL 10 MG/ML, 20ML ONE (12:08)
== END 2020-11-02 14:06 | disposition home or self-care (01) ==
LOC: CACL 10:12
PROVIDERS: ATTEND Internal Medicine Cardiovascular Disease
DX: I48.0 Paroxysmal atrial fibrillation (principal); I36.1 Nonrheumatic tricuspid (valve) insufficiency; I10 Essential (primary) hypertension; E78.2 Mixed hyperlipidemia; E11.9 Type 2 diabetes mellitus without complications; Z79.01 Long term (current) use of anticoagulants; Z79.899 Other long term (current) drug therapy; Z88.5 Allergy status to narcotic agent
CPT/HCPCS: 36415; 80048; 92960; J2704